=== PATIENT | female | born 1950 | race Caucasian/White ===

== ENCOUNTER → 2016-06-26 | Outpatient (CLI) | payer MEDICARE, OTHER ==
[~2016-06-26] MED LIST: DETROL LA4 PO; IRON 100 WITH V1 TAB PO; OPTIMUM FOLIC800 MCG PO
== END ==
LOC: LAB 07:34
DX: J00 Acute nasopharyngitis [common cold] (principal)

== ENCOUNTER → 2016-09-04 | Outpatient (CLI) | payer MEDICARE, OTHER ==
[2016-02-26 10:35] VITALS: BP 134/88
== END ==
LOC: PT 13:09

== ENCOUNTER → 2016-09-12 | Outpatient (CLI) | payer MEDICARE, OTHER ==
[2016-09-12 10:55] VITALS: BP 137/86
== END ==
LOC: AMSURD 10:07
DX: Z01.818 Encounter for other preprocedural examination (principal); M17.12 Unilateral primary osteoarthritis, left knee; N30.00 Acute cystitis without hematuria

== ENCOUNTER → 2016-09-19 | Outpatient (CLI) | payer MEDICARE, OTHER ==
[2016-09-12 10:55] VITALS: BP 137/86
== END ==
LOC: LAB 08:02
DX: Z01.818 Encounter for other preprocedural examination (principal); M17.12 Unilateral primary osteoarthritis, left knee; N30.00 Acute cystitis without hematuria

== ENCOUNTER 2016-11-06 10:15 | Outpatient (RCR) | payer MEDICARE, OTHER ==
[2016-09-12 10:55] VITALS: BP 137/86
== END 2016-11-07 13:05 | disposition home or self-care (01) ==
LOC: PT 10:15
DX: Z47.1 Aftercare following joint replacement surgery (principal); Z96.652 Presence of left artificial knee joint

== ENCOUNTER → 2017-05-19 | Outpatient (CLI) | payer MEDICARE, OTHER ==
[2016-09-12 10:55] VITALS: BP 137/86
[2017-05-19 17:16] LABS: EOS # 0.1 (0.04-0.40); EOS % 1.1 % (1.0-5.0); HEMATOCRIT 44.2 % (37.0-47.0); LYMPH# 1.8 (1.50-4.00); MEAN CELL VOLUME 91 fl (78-100); MEAN CORPUSCULAR HEMOGLOBIN 31 pg (27-31); MEAN CORPUSCULAR HGB CONC 34 g/dL (33-37); MONO # 0.5 (0.20-0.80); NEU # 3.9 (1.40-6.50); PLATELET COUNT 293 K/mm3 (130-400); RED BLOOD COUNT 4.86 M/mm3 (4.10-5.30); RED CELL DISTRIBUTION WIDTH 13.2 % (11.5-14.5); WHITE BLOOD COUNT 6.2 K/mm3 (4.8-10.8)
[2017-05-19 17:50] LABS: ALBUMIN 4.2 g/dL (3.5-5.0); BUN/CREATININE RATIO 18.4 (6.0-26.0); CALCIUM 10.1 mg/dL (8.4-10.2); POTASSIUM 4.2 mmol/L (3.6-5.0); TOTAL BILIRUBIN 1.1 mg/dL (0.2-1.3); TOTAL PROTEIN 7.1 g/dL (6.3-8.2)
[2017-05-19 18:33] LABS: ERYTHROCYTE SEDIMENTATION RATE 2 mm/hr (0-30)
== END ==
LOC: LAB 16:40
PROVIDERS: Internal Medicine
DX: Z00.00 Encounter for general adult medical examination without abnormal findings (principal); K90.9 Intestinal malabsorption, unspecified; E04.2 Nontoxic multinodular goiter; D51.0 Vitamin B12 deficiency anemia due to intrinsic factor deficiency; E78.2 Mixed hyperlipidemia; Z12.11 Encounter for screening for malignant neoplasm of colon

== ENCOUNTER → 2017-05-25 | Outpatient (CLI) | payer MEDICARE, OTHER ==
[2016-09-12 10:55] VITALS: BP 137/86
[2017-05-26 07:26] LABS: T3 TOTAL 78 ng/dL (87-178)
== END ==
LOC: LAB 10:01
PROVIDERS: Internal Medicine
DX: E05.90 Thyrotoxicosis, unspecified without thyrotoxic crisis or storm (principal); Z00.00 Encounter for general adult medical examination without abnormal findings; E04.2 Nontoxic multinodular goiter; Z12.11 Encounter for screening for malignant neoplasm of colon

== ENCOUNTER → 2017-05-26 | Outpatient (CLI) | payer MEDICARE, OTHER ==
[2016-09-12 10:55] VITALS: BP 137/86
== END ==
LOC: MAMMO 12:48 → RAD 13:00 → MAMMO 13:00
DX: Z12.31 Encounter for screening mammogram for malignant neoplasm of breast (principal)
CPT/HCPCS: G0202

== ENCOUNTER → 2017-06-09 | Day surgery (SDC) | payer MEDICARE, OTHER ==
[2016-09-12 10:55] VITALS: BP 137/86
== END ==
LOC: MSO 13:01
DX: R13.13 Dysphagia, pharyngeal phase (principal); R11.10 Vomiting, unspecified; Z98.84 Bariatric surgery status; Z87.891 Personal history of nicotine dependence; Z90.49 Acquired absence of other specified parts of digestive tract
CPT/HCPCS: 00731; A4649; J2704; J7120

== ENCOUNTER → 2019-03-15 | Outpatient (CLI) | payer MEDICARE, OTHER ==
[2016-09-12 10:55] VITALS: BP 137/86
== END ==
LOC: MAMMO 07:15
DX: Z12.31 Encounter for screening mammogram for malignant neoplasm of breast (principal)

== ENCOUNTER → 2019-03-17 | Outpatient (CLI) | payer MEDICARE, OTHER ==
[2016-09-12 10:55] VITALS: BP 137/86
== END ==
LOC: LAB 10:31
DX: Z12.11 Encounter for screening for malignant neoplasm of colon (principal); E04.2 Nontoxic multinodular goiter; K90.9 Intestinal malabsorption, unspecified

== ENCOUNTER → 2019-06-07 | Outpatient (CLI) | payer MEDICARE, OTHER ==
[2016-09-12 10:55] VITALS: BP 137/86
== END ==
LOC: MAMMO 09:31
DX: Z13.820 Encounter for screening for osteoporosis (principal); M85.852 Other specified disorders of bone density and structure, left thigh; M85.851 Other specified disorders of bone density and structure, right thigh

== ENCOUNTER → 2020-02-29 | Day surgery (SDC) | payer MEDICARE, OTHER ==
[2016-09-12 10:55] VITALS: BP 137/86
== END ==
LOC: MSO 07:09
DX: H25.811 Combined forms of age-related cataract, right eye (principal); Z96.651 Presence of right artificial knee joint; Z96.652 Presence of left artificial knee joint; E04.9 Nontoxic goiter, unspecified
CPT/HCPCS: 00142; J0171; J2250; J3010; V2632

== ENCOUNTER → 2021-04-30 | Outpatient (CLI) | payer MEDICARE, OTHER ==
[2021-04-30 09:59] LABS: BASO # 0.02 K/mm3 (0.02-0.10); EOS # 0.07 K/mm3 (0.04-0.40); EOS % 1.5 % (1.0-5.0); HEMATOCRIT 44.6 % (37.0-47.0); HEMOGLOBIN 14.2 g/dL (12.5-16.0); LYMPH# 1.93 K/mm3 (1.50-4.00); MEAN CELL VOLUME 93 fl (78-100); MEAN CORPUSCULAR HEMOGLOBIN 30 pg (27-31); MEAN CORPUSCULAR HGB CONC 32 g/dL (33-37); MEAN PLATELET VOLUME 9.7 fl (7.4-10.4); MONO # 0.38 K/mm3 (0.20-0.80); NEU # 2.22 K/mm3 (1.40-6.50); PLATELET COUNT 251 K/mm3 (130-400); RED BLOOD COUNT 4.78 M/mm3 (4.10-5.30); WHITE BLOOD COUNT 4.6 K/mm3 (4.8-10.8)
[2021-04-30 10:13] LABS: ALBUMIN 4.2 g/dL (3.4-4.8)
[2021-04-30 10:14] LABS: POTASSIUM 4.4 mmol/L (3.5-5.1)
[2021-04-30 10:16] LABS: TOTAL PROTEIN 7.3 g/dL (6.2-8.1)
[2021-04-30 10:18] LABS: TOTAL BILIRUBIN 0.6 mg/dL (0.2-1.2)
[2021-05-04 23:22] LABS: VITAMIN B1 126 nmol/L (70-180)
== END ==
LOC: LAB 09:29
PROVIDERS: Internal Medicine
DX: M85.80 Other specified disorders of bone density and structure, unspecified site (principal); K90.9 Intestinal malabsorption, unspecified; E04.2 Nontoxic multinodular goiter

== ENCOUNTER → 2021-05-18 | Outpatient (CLI) | payer MEDICARE, OTHER | LOC: LAB 14:38 | DX: U07.1 COVID-19 (principal) ==

== ENCOUNTER → 2021-05-21 | Outpatient (CLI) | payer MEDICARE, OTHER ==
[~2021-05-21] VITALS: Ht 170.2 cm; Wt 86.4 kg
[2021-05-21 16:07] VITALS: BP 128/80
== END ==
LOC: AMSURD 10:26
DX: U07.1 COVID-19 (principal)
CPT/HCPCS: M0245; Q0245

== ENCOUNTER → 2021-07-17 | Outpatient (CLI) | payer MEDICARE, OTHER | LOC: MAMMO 14:53 | DX: Z12.31 Encounter for screening mammogram for malignant neoplasm of breast (principal); M85.80 Other specified disorders of bone density and structure, unspecified site ==

== ENCOUNTER → 2022-08-19 | Outpatient (CLI) | payer MEDICARE, OTHER | LOC: MAMMO 10:21 | DX: Z12.31 Encounter for screening mammogram for malignant neoplasm of breast (principal); M81.0 Age-related osteoporosis without current pathological fracture ==

== ENCOUNTER → 2023-06-29 | Outpatient (CLI) | payer MEDICARE, OTHER ==
[~2023-06-29] MED LIST changes: +CRANBERRY200 MG PO; +MAGNESIUM100 M1 PO; +NATURE'S BLEND500 M5 PO; +ONE-DAILY MULT1 EAC1 PO; +PRENATAL FORMU1 EAC2 PO; +VITAMIN D3125 MC1 PO
== END ==
LOC: AMSURD 16:23
DX: D51.0 Vitamin B12 deficiency anemia due to intrinsic factor deficiency (principal)

== ENCOUNTER → 2024-02-09 | Outpatient (CLI) | payer MEDICARE, OTHER ==
[2024-02-09 08:36] LABS: BASO # 0.01 K/mm3 (0.02-0.10); EOS # 0.07 K/mm3 (0.04-0.40); EOS % 1.4 % (1.0-5.0); HEMATOCRIT 45.6 % (37.0-47.0); HEMOGLOBIN 14.8 g/dL (12.5-16.0); LYMPH# 1.56 K/mm3 (1.50-4.00); MEAN CELL VOLUME 95 fl (78-100); MEAN CORPUSCULAR HEMOGLOBIN 31 pg (27-31); MEAN CORPUSCULAR HGB CONC 33 g/dL (33-37); MEAN PLATELET VOLUME 9.4 fl (7.4-10.4); MONO # 0.27 K/mm3 (0.20-0.80); NEU # 3.06 K/mm3 (1.40-6.50); PLATELET COUNT 287 K/mm3 (130-400); RED CELL DISTRIBUTION WIDTH 12.5 % (11.5-14.5)
[2024-02-09 08:41] LABS: ALBUMIN 4.2 g/dL (3.4-4.8); SODIUM 139 mmol/L (136-145)
[2024-02-09 08:42] LABS: CALCIUM 9.9 mg/dL (8.3-10.5)
[2024-02-09 08:43] LABS: GLUCOSE 90 mg/dL (65-105)
[2024-02-09 08:44] LABS: TOTAL PROTEIN 7.7 g/dL (6.2-8.1)
[2024-02-09 08:45] LABS: CARBON DIOXIDE 23 mmol/L (23-31)
[2024-02-09 08:51] LABS: AST-SGOT < 3 U/L (5-34)
[2024-02-09 09:54] LABS: TOTAL BILIRUBIN 0.6 mg/dL (0.2-1.2)
[2024-02-09 09:57] LABS: ALT/SGPT 24 U/L (0-55)
[2024-02-09 22:58] LABS: PTH,INTACT 71.7 pg/mL (6.6-88.9)
[2024-02-09 23:25] LABS: FOLATE (FOLIC ACID) >20.0 ng/mL (2.0-20.0)
== END ==
LOC: LAB 08:15
PROVIDERS: Internal Medicine
DX: Z12.11 Encounter for screening for malignant neoplasm of colon (principal); M81.0 Age-related osteoporosis without current pathological fracture; K90.9 Intestinal malabsorption, unspecified; E04.2 Nontoxic multinodular goiter; R73.9 Hyperglycemia, unspecified; Z98.84 Bariatric surgery status

== ENCOUNTER → 2024-02-10 | Outpatient (CLI) | payer MEDICARE, OTHER | LOC: LAB 12:20 | DX: Z12.11 Encounter for screening for malignant neoplasm of colon (principal); M81.0 Age-related osteoporosis without current pathological fracture; K90.9 Intestinal malabsorption, unspecified; E04.2 Nontoxic multinodular goiter; R73.9 Hyperglycemia, unspecified; Z98.84 Bariatric surgery status ==

== ENCOUNTER → 2024-03-04 | Outpatient (CLI) | payer MEDICARE, OTHER | LOC: MAMMO 08:36 | DX: Z12.31 Encounter for screening mammogram for malignant neoplasm of breast (principal) ==

== ENCOUNTER → 2024-03-04 | Outpatient (CLI) | payer MEDICARE, OTHER | LOC: RAD 08:41 | DX: L98.9 Disorder of the skin and subcutaneous tissue, unspecified (principal) ==